=== PATIENT | female | born 1990 | race Caucasian/White ===

== ENCOUNTER 2017-04-13 09:30 | Observation (INO) ==
[2017-04-13 00:34] LABS: Basophils % 0.1 %; Eosinophils # 0.1 K/mcL (0.0-0.6); Eosinophils % 0.6 %; Hematocrit 29.8 % (35.3-44.9); Hemoglobin 10.5 g/dL (11.5-15.4); Immature Granulocytes % 0.5 % (0-4); Lymphocytes # 1.8 K/mcL (0.6-4.6); Lymphocytes % 22.2 %; Mean Corpuscular HGB Conc 35.2 g/dL (31.6-35.5); Mean Corpuscular Hemoglobin 32.5 pg (28.0-33.3); Mean Corpuscular Volume 92.3 fL (83.0-100.0); Mean Platelet Volume 9.6 fL (9.4-12.4); Monocytes # 0.4 K/mcL (0.0-1.3); Monocytes % 4.9 %; Neutrophils # 5.9 K/mcL (1.6-8.9); Platelet Count 189 K/mcL (140-400); Red Blood Count 3.23 M/mcL (3.82-4.97); Red Cell Distribution Width 12.7 % (11.5-14.5); Segmented Neutrophils % 71.7 %
[2017-04-13 00:40] LABS: Prothrombin Time 10.7 Seconds (9.4-12.1)
[2017-04-13 00:43] LABS: Activated Partial Thrombo Time 27.5 Seconds (26.0-36.0)
--- NOTE | 2017-04-13 01:03 | OB/GYN History & Physical ---
Date of Encounter: 04/13/17 Time of Encounter: 00:06 Assessment and Plan (1) 23 weeks gestation of Current visit: Yes Status: Acute (2) Hemorrhage affecting at 23 to 26 weeks gestation, antepartum Current visit: Yes Status: Acute Given amount of bleeding pt had will admit for observation overnight and plan u/ s in am. D/w pt if condition should worsen possible need for emergent c- section and she reports that she would like emergent performed if needed. She is aware of marginal chance of survival and possible group home complications of this babe were delivered now and should survive. History of Present Illness Chief complaint: Bright red vaginal bleeding. HPI: Ms. Treviño is a 26 year old female 3 para 2 female at 23 weeks gestation presents to labor and delivery with complaint of bright red vaginal bleeding. Patient reports she had been fishing this evening when approximate 45 minutes prior to arrival she started having severe back pain went home laid down in bed and had at least 2 cups of bright red vaginal bleeding noted on the sheets. She denies contractions she reports good movement she denies leakage of clear fluid of note she did have sexual intercourse earlier today. She has had no prior problems this . She has no UTI symptoms. She has 2 previous prior term vaginal deliveries without labor. Upon arrival she continues to complain of low back. She denies abdominal pain and bleeding has now pretty near stopped. Past Med Surg Social Fam HX - Past Medical History Source: patient, old records reviewed Medical history: no medical history Psychiatric history: no psych history - Past Surgical History Surgical History: appendectomy - Social History Smoking Status: Never smoker Smokeless Tobacco Status: No Alcohol use: none Drug use: none - Family History Mother Living Status: Still Living Obstetrical History - Pregnancies : 3 Para: 2 Medications and Allergies Ahq302/Iron Fumarate/FA/Dss [ 19 Tablet] 1 tab PO DAILY 04/12/17 [ History] Allergies No Known Allergies Allergy (Verified 04/12/17 23:51) Exam - Constitutional Constitutional: well developed - HEENT HEENT: EOMI, PERRL - Neck Neck exam: full ROM - Lungs Respiratory exam: CTAB - Cardiovascular Cardiovascular exam: RRR - Abdomen Abdomen: Present: gravid, non tender - Cervix Dilation: 0 Effacement: 0 Station: -3 - Uterus Uterus exam: Present: enlarged - Comments Comments: SSE shows scant blood., fern is negative Results Result Diagrams: 04/13/17 00:20 All other labs normal.
[~2017-04-13 09:30] MED LIST: Ringers Solution, Lactated 1,000 ML IVC SCH
--- NOTE | 2017-04-13 11:18 | OB/GYN Progress Note ---
Date of Encounter: 04/13/17 Time of Encounter: 11:16 - Assessment and Plan (1) 23 weeks gestation of Current Visit: Yes Status: Acute (2) Hemorrhage affecting at 23 to 26 weeks gestation, antepartum Current Visit: Yes Status: Acute (3) Low lying placenta with hemorrhage, second trimester Current Visit: Yes Status: Acute Patient placed on pelvic rest to followup as scheduled with Dr. Schreiber. Bleeding precautions given. Subjective - Subjective Antepartum ROS: movement normal, no new complaints Objective - Vital Signs Vital Signs: Intake and Output 04/12/17 04/13/17 04/13/17 23:59 07:59 15:59 Other: Weight 79.379 kg - Exam Comments: Ultrasound images and report reviewed. Low lying placenta noted. Cervical length good. - Labs Labs: Abnormal lab results RBC 3.23 M/mcL (3.82-4.97) L 04/13/17 00:20 Hgb 10.5 g/dL (11.5-15.4) L 04/13/17 00:20 Hct 29.8 % (35.3-44.9) L 04/13/17 00:20
== END 2017-04-13 11:25 | disposition home or self-care (01) ==
LOC: 1NENULAB
PROVIDERS: ADMIT Obstetrics & Gynecology; ATTEND Obstetrics & Gynecology

== ENCOUNTER → 2017-07-09 16:50 | Observation (INO) ==
[2017-07-09 13:41] LABS: Bilirubin,Urine Small (Negative); Blood,Urine Large (Negative); Clarity,Urine Turbid (Clear); Color,Urine Red (Yellow); Glucose,Urine (UA) Normal (Normal); Ketones,Urine Trace mg/dL (Negative); Leukocyte Esterase,Urine Large (Negative); Nitrite,Urine Negative (Negative); PH,Urine 5.5 pH Units (5.0-8.0); Protein,Urine 30 mg/dL (Neg-Trace); Specific Gravity,Urine 1.025 (1.010-1.025); Urobilinogen,Urine Normal (Normal)
[2017-07-09 13:44] LABS: Bacteria,Urine Few per hpf (None-Few); Hyaline Casts,Urine None Seen per lpf (None-Few); Squamous Epithelial Cell,Urine Many per lpf (None-Few); WBC,Urine 50-100 per hpf (0-3)
[2017-07-09 13:51] LABS: RBC,Urine TNTC per hpf (0-3)
[2017-07-09 13:55] LABS: Basophils % 0.1 %; Hematocrit 34.2 % (35.3-44.9); Hemoglobin 11.8 g/dL (11.5-15.4); Immature Granulocytes % 0.5 % (0-4); Lymphocytes # 0.4 K/mcL (0.6-4.6); Lymphocytes % 4.9 %; Mean Corpuscular HGB Conc 34.5 g/dL (31.6-35.5); Mean Corpuscular Hemoglobin 30.9 pg (28.0-33.3); Mean Corpuscular Volume 89.5 fL (83.0-100.0); Mean Platelet Volume 9.7 fL (9.4-12.4); Monocytes # 0.2 K/mcL (0.0-1.3); Monocytes % 2.5 %; Neutrophils # 7.6 K/mcL (1.6-8.9); Platelet Count 154 K/mcL (140-400); Red Blood Count 3.82 M/mcL (3.82-4.97)
[2017-07-09 14:08] LABS: Alanine Aminotransferase 8 Units/L (0-55); Albumin 2.7 g/dL (3.5-5.0); Albumin/Globulin Ratio 0.8 (1.1-2.2); Alkaline Phosphatase 109 Units/L (38-126); Aspartate Amino Transferase 13 Units/L (5-34); BUN/Creatinine Ratio 13 (6-26); Bilirubin,Total 0.7 mg/dL (0.2-1.2); Blood Urea Nitrogen 8 mg/dL (7-20); Calcium 8.6 mg/dL (8.6-10.8); Carbon Dioxide 18 mEq/L (19-29); Chloride 109 mEq/L (98-109); Globulin 3.3 g/dL (2.4-3.5); Glucose 67 mg/dL (70-99); Osmolality,Calculated 279 (280-300); Potassium 3.7 mEq/L (3.5-4.5); Sodium 136 mEq/L (136-145); eGFR For African Americans > 60 (> 60); eGFR For Non-African Americans > 60 (> 60)
[2017-07-09 15:18] LABS: Amphetamine Screen,Urine Negative ng/mL (Cutoff=1000); Barbiturate Screen,Urine Negative ng/mL (Cutoff=200); Benzodiazepines Screen,Urine Negative ng/mL (Cutoff=200); Cannabinoid Screen,Urine Negative ng/mL (Cutoff = 50); Cocaine Screen,Urine Negative ng/mL (Cutoff= 300); Opiate Screen,Urine Negative ng/mL (Cutoff=300); Phencyclidine Screen,Urine Negative ng/mL (Cutoff=25)
[2017-07-09 16:04] LABS: Bilirubin,Urine Small (Negative); Blood,Urine Large (Negative); Clarity,Urine Turbid (Clear); Color,Urine Red (Yellow); Glucose,Urine (UA) Normal (Normal); Ketones,Urine 80 mg/dL (Negative); Leukocyte Esterase,Urine Large (Negative); Nitrite,Urine Negative (Negative); Protein,Urine 30 mg/dL (Neg-Trace); Specific Gravity,Urine 1.021 (1.010-1.025); Urobilinogen,Urine Normal (Normal)
[2017-07-09 16:16] LABS: Squamous Epithelial Cell,Urine Few per lpf (None-Few)
[2017-07-09 16:17] LABS: Mucus,Urine Few (Few); RBC,Urine TNTC per hpf (0-3)
[2017-07-09 16:19] LABS: Amorphous Sediment,Urine Few (Few)
--- NOTE | 2017-07-09 16:24 | OB/GYN Progress Note ---
Date of Encounter: 07/09/17 Time of Encounter: 16:19 - Assessment and Plan (1) 36 weeks gestation of Current Visit: Yes Status: Acute 27 y/o @ 36+2 weeks who comes in to L&D with complaints of possible LOF, vaginal bleeding and decreased movement, SSE done showed bruised vaginal mucosa inferior to the urethra(she had sex last night), patient hydrated, CBC and CMP drawn which returned unremarkable, Abx given for UTI, cervix closed Objective - Vital Signs Vital Signs: Intake and Output 07/09/17 07/09/17 07/09/17 07:59 15:59 23:59 Other: Weight 89.3 kg Patient Weight 07/09/17 23:59 Weight 89.3 kg - Labs Labs: Abnormal lab results Hct 34.2 % (35.3-44.9) L 07/09/17 13:40 Lymphocytes # 0.4 K/mcL (0.6-4.6) L 07/09/17 13:40 Carbon Dioxide 18 mEq/L (19-29) L 07/09/17 13:40 Glucose 67 mg/dL (70-99) L 07/09/17 13:40 Calculated Osmolality 279 (280-300) L 07/09/17 13:40 Albumin 2.7 g/dL (3.5-5.0) L 07/09/17 13:40 Albumin/Globulin Ratio 0.8 (1.1-2.2) L 07/09/17 13:40 Urine Color Red (Yellow) A 07/09/17 14:40 Urine Clarity Turbid (Clear) A 07/09/17 14:40 Urine Protein 30 mg/dL (Neg-Trace) H 07/09/17 14:40 Urine Ketones 80 mg/dL (Negative) H 07/09/17 14:40 Urine Blood Large (Negative) H 07/09/17 14:40 Urine Bilirubin Small (Negative) H 07/09/17 14:40 Ur Leukocyte Esterase Large (Negative) H 07/09/17 14:40 Urine Microscopic RBC TNTC per hpf (0-3) H 07/09/17 14:40 Urine Microscopic WBC 5-15 per hpf (0-3) H 07/09/17 14:40 Ur Culture Indicated? YES (NO) A 07/09/17 14:40
[~2017-07-09 16:50] MED LIST changes: +Benzocaine/Menthol 56 GM AEROSOL SPRAY TP ONE; +Benzocaine/Menthol 56 GM AEROSOL SPRAY TP PRN; -Ringers Solution, Lactated 1,000 ML IVC SCH; +Ringers Solution, Lactated 1,000 ML ONE
== END | disposition home or self-care (01) ==
LOC: 1NENULAB
PROVIDERS: ADMIT Student in an Organized Health Care Education/Training Program; ATTEND Student in an Organized Health Care Education/Training Program

== ENCOUNTER → 2017-07-23 20:50 | Observation (INO) ==
[2017-07-23 19:22] VITALS: BP 124/77
[2017-07-23 20:08] LABS: Bilirubin,Urine Negative (Negative); Blood,Urine Negative (Negative); Clarity,Urine Cloudy (Clear); Color,Urine Yellow (Yellow); Glucose,Urine (UA) Normal (Normal); Ketones,Urine Negative (Negative); Leukocyte Esterase,Urine Trace (Negative); Nitrite,Urine Negative (Negative); Protein,Urine Negative (Neg-Trace); Specific Gravity,Urine 1.013 (1.010-1.025); Urobilinogen,Urine Normal (Normal)
[2017-07-23 20:10] LABS: Hyaline Casts,Urine None Seen per lpf (None-Few); RBC,Urine 0-3 per hpf (0-3)
[2017-07-23 20:14] LABS: Amphetamine Screen,Urine Negative ng/mL (Cutoff=1000); Barbiturate Screen,Urine Negative ng/mL (Cutoff=200); Benzodiazepines Screen,Urine Negative ng/mL (Cutoff=200); Cannabinoid Screen,Urine Negative ng/mL (Cutoff = 50); Cocaine Screen,Urine Negative ng/mL (Cutoff= 300); Opiate Screen,Urine Negative ng/mL (Cutoff=300); Phencyclidine Screen,Urine Negative ng/mL (Cutoff=25)
[2017-07-23 20:20] LABS: Bacteria,Urine Moderate per hpf (None-Few); Squamous Epithelial Cell,Urine Few per lpf (None-Few)
--- NOTE | 2017-07-23 21:05 | Discharge Summary ---
Date of Encounter: 07/23/17 Time of Encounter: 21:04 - Discharge Diagnosis (1) 37 weeks gestation of Priority: Secondary Status: Acute (2) PROM (premature rupture of membranes) Priority: Primary Status: Ruled-out Qualifiers: PROM onset of labor timing: unspecified duration between rupture of membranes and onset of labor PROM gestational age: full term Qualified Code( s): O42.92 - Full-term premature rupture of membranes, unspecified as to length of time between rupture and onset of labor - Discharge Medications Home Medications: Vom694/Iron Fumarate/FA/Dss [ 19 Tablet] 1 tab PO DAILY 04/12/17 [ History] Allergies/Adverse Reactions: 3 Allergy/AdvReac Type Severity Reaction Status Date / Time No Known Allergies Allergy Verified 04/12/17 23:51 Data Procedures and tests throughout hospitalization: Laboratory Tests 07/23/17 07/23/17 20:00 20:00 Urine Color Yellow Urine Clarity Cloudy A Urine pH 6.0 Ur Specific [place] 1.013 Urine Protein Negative Urine Glucose (UA) Normal Urine Ketones Negative Urine Blood Negative Urine Nitrite Negative Urine Bilirubin Negative Urine Urobilinogen Normal Ur Leukocyte Esterase Trace H Urine Microscopic RBC 0-3 Urine Microscopic WBC 5-15 H Ur Squamous Epith Cells Few Urine Bacteria Moderate H Hyaline Casts None Seen Ur Culture Indicated? YES A Urine Opiates Screen Negative Ur Barbiturates Screen Negative Ur Phencyclidine Scrn Negative Ur Amphetamines Screen Negative U Benzodiazepines Scrn Negative Urine Cocaine Screen Negative U Marijuana (THC) Screen Negative Labs on day of discharge: Labs from last 24 hours 07/23/17 07/23/17 20:00 20:00 Urine Color Yellow Urine Clarity Cloudy A Urine pH 6.0 Ur Specific [place] 1.013 Urine Protein Negative Urine Glucose (UA) Normal Urine Ketones Negative Urine Blood Negative Urine Nitrite Negative Urine Bilirubin Negative Urine Urobilinogen Normal Ur Leukocyte Esterase Trace H Urine Microscopic RBC 0-3 Urine Microscopic WBC 5-15 H Ur Squamous Epith Cells Few Urine Bacteria Moderate H Hyaline Casts None Seen Ur Culture Indicated? YES A Urine Opiates Screen Negative Ur Barbiturates Screen Negative Ur Phencyclidine Scrn Negative Ur Amphetamines Screen Negative U Benzodiazepines Scrn Negative Urine Cocaine Screen Negative U Marijuana (THC) Screen Negative Date of admission: 07/23/17 19:09 - Patient Status Disposition: Home, Self-Care Condition: Good Functional capacity at discharge: independent ambulation Overall status at discharge: patient is progressing back to baseline - Discharge Instructions Additional Instructions: LABOR AND DELIVERY DISCHARGE INSTRUCTIONS Signs and Symptoms to be Reported to your Doctor Immediately: * Sudden gush, continuous or intermittent lead of fluid from vagina (note the time of gush and color of fluid) * Onset of bright red vaginal bleeding with or without pain (if you had a vaginal exam during this visit you may notice some dark red spotting. This is normal.) * Contractions that are 5 minutes apart (from the beginning of one contraction to the beginning of the next) and last 45-60 seonds; contractions that you can no longer walk, talk or laugh through. * A change in the baby's activity. This could be an increase or decrease in activity. * Severe headache which does not go away with tylenol. * Sudden swelling in the face, hands, arms and/or legs. * Upper abdominal pain - sometimes associated with heartburn or nausea and is not relieved by Maalox, Mylanta or Tums. * Kick Counts __ One hour after a meal, lay down on one side in a quiet place. Count the number of time the baby moves during an hour. 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
== END | disposition home or self-care (01) ==
LOC: 1NENULAB
PROVIDERS: ADMIT Obstetrics & Gynecology; ATTEND Obstetrics & Gynecology

== ENCOUNTER → 2017-07-30 17:35 | Observation (INO) ==
[2017-07-30 14:52] LABS: Bilirubin,Urine Negative (Negative); Blood,Urine Large (Negative); Clarity,Urine Cloudy (Clear); Color,Urine Dark Yellow (Yellow); Glucose,Urine (UA) Normal (Normal); Ketones,Urine 40 mg/dL (Negative); Leukocyte Esterase,Urine Moderate (Negative); Nitrite,Urine Negative (Negative); Protein,Urine Trace mg/dL (Neg-Trace); Specific Gravity,Urine 1.019 (1.010-1.025); Urobilinogen,Urine Normal (Normal)
[2017-07-30 14:57] LABS: Amphetamine Screen,Urine Negative ng/mL (Cutoff=1000); Barbiturate Screen,Urine Negative ng/mL (Cutoff=200); Benzodiazepines Screen,Urine Negative ng/mL (Cutoff=200); Cannabinoid Screen,Urine Negative ng/mL (Cutoff = 50); Cocaine Screen,Urine Negative ng/mL (Cutoff= 300); Opiate Screen,Urine Negative ng/mL (Cutoff=300); Phencyclidine Screen,Urine Negative ng/mL (Cutoff=25)
[2017-07-30 15:01] LABS: RBC,Urine 15-30 per hpf (0-3); Squamous Epithelial Cell,Urine Few per lpf (None-Few)
[2017-07-30 15:02] LABS: Bacteria,Urine Few per hpf (None-Few)
--- NOTE | 2017-07-30 17:40 | OB/GYN Progress Note ---
Date of Encounter: 08/05/17 Time of Encounter: 17:38 - Assessment and Plan (1) 38 weeks gestation of Status: Acute (2) UTI (urinary tract infection) Status: Acute Qualifiers: Indwelling urinary catheter type: unspecified Encounter type: initial encounter (3) Candidiasis Status: Acute Will rx Terazol Subjective - Subjective Principal diagnosis: cramps and d/c Interval history: Pt at 38w4d presents with cramps and d/c. She denies uc's. No uc's, vb or lof. Objective - Vital Signs Vital Signs: Intake and Output 07/30/17 07/30/17 07/30/17 07:59 15:59 23:59 Other: Weight 87.2 kg Patient Weight 07/30/17 23:59 Weight 87.2 kg - Exam FHR: category 1 Auscultation: bilateral: normal Abdomen: Present: gravid Cervical dilation: 2-3 Cervix effacement: 70 station: -2 - Labs Labs: Abnormal lab results Urine Clarity Cloudy (Clear) A 07/30/17 14:40 Urine Ketones 40 mg/dL (Negative) H 07/30/17 14:40 Urine Blood Large (Negative) H 07/30/17 14:40 Ur Leukocyte Esterase Moderate (Negative) H 07/30/17 14:40 Urine Microscopic RBC 15-30 per hpf (0-3) H 07/30/17 14:40 Urine Microscopic WBC 5-15 per hpf (0-3) H 07/30/17 14:40 Ur Culture Indicated? YES (NO) A 07/30/17 14:40
== END | disposition home or self-care (01) ==
LOC: 1NENULAB
PROVIDERS: ADMIT Obstetrics & Gynecology; ATTEND Obstetrics & Gynecology

== ENCOUNTER 2017-08-01 22:29 | Inpatient (IN) ==
[2017-08-01] MEDS ORDERED: Metoclopramide 10 MG/2 ML VIAL IVP PRN (22:36)
[2017-08-01] MEDS ORDERED: Ondansetron 4 MG/2 ML VIAL IVP PRN (22:36)
[2017-08-01] MEDS ORDERED: Naloxone 0.4 MG/ML INJ IVP PRN (22:36)
[2017-08-01] MEDS ORDERED: Famotidine 20 MG/2 ML VIAL IVP PRN (22:36)
[2017-08-01] MEDS ORDERED: FLUARIX QUAD 2017-18 36MOS UP/PF 0.5 ML SYRINGE IM ONE (22:44)
[2017-08-01] MEDS ORDERED: Ringers Solution, Lactated 1,000 ML IVC SCH (22:45)
[2017-08-01 23:00] LABS: Basophils % 0.2 %; Eosinophils % 0.4 %; Hematocrit 31.7 % (35.3-44.9); Hemoglobin 10.9 g/dL (11.5-15.4); Immature Granulocytes % 0.5 % (0-4); Lymphocytes # 1.9 K/mcL (0.6-4.6); Lymphocytes % 20.2 %; Mean Corpuscular HGB Conc 34.4 g/dL (31.6-35.5); Mean Corpuscular Hemoglobin 30.7 pg (28.0-33.3); Mean Corpuscular Volume 89.3 fL (83.0-100.0); Mean Platelet Volume 10.1 fL (9.4-12.4); Monocytes # 0.5 K/mcL (0.0-1.3); Monocytes % 5.9 %; Neutrophils # 6.7 K/mcL (1.6-8.9); Platelet Count 210 K/mcL (140-400); Red Blood Count 3.55 M/mcL (3.82-4.97); Red Cell Distribution Width 12.1 % (11.5-14.5); Segmented Neutrophils % 72.8 %
[2017-08-01 23:06] LABS: Amphetamine Screen,Urine Negative ng/mL (Cutoff=1000); Barbiturate Screen,Urine Negative ng/mL (Cutoff=200); Benzodiazepines Screen,Urine Negative ng/mL (Cutoff=200); Cannabinoid Screen,Urine Negative ng/mL (Cutoff = 50); Cocaine Screen,Urine Negative ng/mL (Cutoff= 300); Opiate Screen,Urine Negative ng/mL (Cutoff=300); Phencyclidine Screen,Urine Negative ng/mL (Cutoff=25)
[2017-08-01] MEDS ORDERED: Oxytocin 20 units/ LR 1000 mL 20 UNIT/1,000 ML BAG IVC SCH (23:45)
--- NOTE | 2017-08-02 00:47 | OB/GYN History & Physical ---
Date of Encounter: 08/02/17 Time of Encounter: 00:44 Assessment and Plan (1) 39 weeks gestation of Current visit: Yes Status: Acute admit for delivery (2) Elective induction of labor planned Current visit: Yes Status: Acute Pitocin per protocol Patient may have Nubain or Epidural if desires (3) HSV (herpes simplex virus) infection Current visit: Yes Status: Acute acyclovir daily (4) Rubella non-immune status, antepartum Current visit: Yes Status: Acute Immunization offered History of Present Illness Chief complaint: Scheduled IOL HPI: Ms. Treviño is a 27 year old female at 39w0d admitted to L&D for planned elective induction at term. Pt reports + movement, denies LOF and bleeding. Blood Type O+ GBS Negative Rubella Non-immune HbSAG negative Varicella Immune T-Pallidum negative Past Med Surg Social Fam HX - Past Medical History Source: patient Medical history: no medical history, other (HSV) Psychiatric history: anxiety, depression - Past Surgical History Surgical History: appendectomy - Social History Smoking Status: Never smoker Smokeless Tobacco Status: No Alcohol use: none Drug use: none Current living situation: Home - Independent Activity Level: Independent ambulation Recent Out of Country Travel Within the Last 8 Weeks: No Exposure or Possible Exposure to Illness During Travel: No - Family History Mother Age: 48 Living Status: Still Living Hx Family Cardiac Disorders: No Hx Family Respiratory Disorders: No Hx Family Cancer: No Hx Family GI Disorders: No Hx Family Genitourinary Disorders: No Hx Family Endocrine Disorder: No Hx Family Musculoskeletal Disorders: No Hx Family Neuromuscular Disorders: No Hx Family Neurologic Disorders: No Hx Family HEENT Disorders: No Hx Family Autoimmune Disorders: No Hx Family Reproductive Disorders: No Hx Family Psychosocial Disorders: No Hx Family Medical Disorders: No Obstetrical History - Pregnancies : 3 Para: 2 Term: 2 : 0 Ab's: 0 Livin - History/Complications History/Complications: HSV positive, Taking Valacyclovir Medications and Allergies Eah168/Iron Fumarate/FA/Dss [ 19 Tablet] 1 tab PO DAILY 04/12/17 [ History] valACYclovir [Valtrex] 500 mg PO DAILY 07/30/17 [History] 3 Allergy/AdvReac Type Severity Reaction Status Date / Time No Known Allergies Allergy Verified 04/12/17 23:51 Review of System OB All systems PM: reviewed and no additional remarkable complaints except as stated Exam - Vital Signs Vital signs: Initial Vital Signs Temp Pulse Resp BP 98.0 F 81 16 126/69 08/01/17 22:37 08/01/17 22:37 08/01/17 22:37 08/01/17 22:37 - Constitutional Constitutional: well developed, well nourished, no acute distress, average body habitus - Neck Neck exam: full ROM, normal inspection - Lungs Respiratory exam: CTAB - Cardiovascular Cardiovascular exam: RRR, +S1, +S2 - Abdomen Abdomen: Present: bowel sounds normal, gravid, non tender - Extremities Extremities exam: full ROM, normal capillary refill, normal inspection - Cervix Dilation: 3 (per induction consent) Effacement: 60 Station: -1 - Uterus Uterus exam: Present: normal size, normal contour - Comments Comments: FHr 115 bpm moderate variability +15x15 accels no decels noted. Cat. 1 tracing. No contractions noted. Results Result Diagrams: 08/01/17 22:46 Abnormal lab results RBC 3.55 M/mcL (3.82-4.97) L 08/01/17 22:46 Hgb 10.9 g/dL (11.5-15.4) L 08/01/17 22:46 Hct 31.7 % (35.3-44.9) L 08/01/17 22:46 All other labs normal. - VTE Reasons for not Prescribing Prophylaxis: Treatment not Indicated - Low risk for VTE
[2017-08-02] MEDS ORDERED: *HR* FentaNYL (PF) 100 MCG/2 ML VIAL ONE (04:20)
[2017-08-02] MEDS ORDERED: *HR* Ropivacaine/PF 0.2% 10 ML AMPUL ONE (04:20)
[2017-08-02] MEDS ORDERED: Epidural Premix (fent/bupiv) 110 ML EP ONE (04:21)
--- NOTE | 2017-08-02 04:52 | Anesthesia Evaluation PreOp ---
Date of Encounter: 08/02/17 Time of Encounter: 04:49 - Past History Planned Operation: neelima Cardiac History: Denies any Significant Hx Pulmonary History: Denies Any Significant HX BUSINESS ASST History: Denies Any Significant HX Other Medical History: Denies Any Significant HX Anesthesia History: No Prior Anesthetic Complications, Past Anesthesia : Yes (, 39 weeks) Alcohol Use: none Drug use: none Medications and Allergies Zsn318/Iron Fumarate/FA/Dss [ 19 Tablet] 1 tab PO DAILY 04/12/17 [ History] valACYclovir [Valtrex] 500 mg PO DAILY 07/30/17 [History] 3 Allergy/AdvReac Type Severity Reaction Status Date / Time No Known Allergies Allergy Verified 04/12/17 23:51 - Meds/Allergy Pre-op Review Medications Reviewed: Yes Allergies Reviewed: Yes Beta Blockers on Current Med List: No Anesthesia Results - Labs 08/01/17 22:46 Anesthesia Exam O2 Sat Height 1.75 m Weight 93.1 kg Vital Signs Temp Pulse Resp BP 98.0 F 81 16 126/69 08/01/17 22:37 08/01/17 22:37 08/01/17 22:37 08/01/17 22:37 Height: 69 Weight: 93 - HEENT Pupil (Motor): Pupils equal Mallampati: II Teeth: Normal Oral Opening: Greater than 3 - BUSINESS ASST LOC: Oriented BUSINESS ASST Motor: Normal RUE, Normal LUE, Normal RLE, Normal LLE, Normal Face BUSINESS ASST Sensory: Normal: RUE, LUE, RLE, LLE, Face - Cardiac Rhythm: Regular Murmur: None JVD: No Carotid Bruit: No - Pulmonary Breath Sounds: bilateral Clear Respiratory Effort: Symmetrical Anesthesia Assess/Plan ASA Score: 2 Modified [place] Scale for Level of Consciousness: Cooperative, oriented, and tranquil Anesthetic Plan: Regional Monitoring Plan: Standard Monitors
--- NOTE | 2017-08-02 04:55 | Anesthesia Procedures ---
Date of Encounter: 08/02/17 Time of Encounter: 04:20 Procedures: Anesthesia - Epidural/Spinal Patient ID/Chart reviewed: Yes Patient examined: Yes OB Eval: Gestational age: 39 OB Eval: : 3 OB Eval: Hx Para: 2 OB Eval: Dilated at (cm): 4 OB Eval: Contractions: Non-stressed pattern Consent Obtained: Yes Supplemental Oxygen: None/Room Air Site Prep: Aseptic Technique Patient position: upright Local Anesthetic: Lidocaine 1% Amount of Local Anesthetic used: 2 Touhy Needle Gauge: 18 Touhy Needle Depth (cm): 6 Catheter Depth at Skin (cm): 12 Test Dose (1.5% Lido + Epi): Volume given (mls): 3 Test Dose Result: Negative Loading Dose: Fentanyl (mcg): 100 Loading Dose: Other: 0.2% ropivicaine 8ml Loading Dose Administered: Thru Touhy Needle Infusion Med: 0.125% Bupivacaine w/ 2 mcg/ml Fentanyl Infusion Rate (mls/hr): [address]: Tegaderm Interspace Used: L2-L3 Loss of Resistance (ROGELIO): Yes Blood: No CSF: No Paresthesia: No
--- NOTE | 2017-08-02 05:03 | OB Labor Progress Note ---
Date of Encounter: 08/02/17 Time of Encounter: 05:00 Labor Progress Note - Subjective Subjective: Patient resting comfortably with epidural in place. Discussed POC with patient. Patient denies any questions or concerns. - Cervix Cervix: 4.5/70/-1 - Heart Tones Heart Tones: 115 bpm moderate variability +15x15 accels no decels noted. Cat. 1 tracing - [place]: 1.5-2 min apart - Interventions Interventions: SVE, IUPC placed without difficulty. Patient tolerated well. - Plan Plan: Continue to labor management.
--- NOTE | 2017-08-02 08:58 | OB/GYN Procedure Note ---
Delivery - Delivery Date: 08/02/17 Provider: Blanche De Luna (SN Alex) Intrapartum events: none Delivery induction: AROM, oxytocin Delivery augmentation: rupture of membranes Delivery monitor: external FHT, external uterine, internal uterine Anesthesia: epidural Estimated Blood Loss: 100 - Infant (s) A Delivery Date: 08/02/17 Infant Delivery Time: 08:19 Presentation: vertex Position: TANI Route of delivery: Gender: Female Viability: Viable Pounds: 9 Ounces: 1 Weight Gram: 4.115 kg at 1 minute: 8 at 5 mins: 9 Shoulder Dystocia: not encountered Specimens collected: cord blood Placenta: spontaneous Cord: 3 umbilical vessels - Repair Episiotomy: none Laceration Description: Periurethral - Complications Delivery complications: none Delivery comments: Under maternal effort, delivery of viable 4115 gm female infant over intact perineum with right periurethral laceration repaired with 4-0 Vicryl. Orient to maternal abdomen for drying and stimulation. Cord clamped and cut after pulsation ceased. Cord specimen and cord blood obtained. Spontaneous delivery of intact placenta. All counts complete. No meconium or shoulder dystocia encountered. EBL 100 mL. Mother and stable for 2 hour recovery. - Disposition Mom disposition: stable in LDR disposition: stable in LDR
[2017-08-02] MEDS ORDERED: Acetaminophen 325 MG TABLET PO PRN (11:01)
[2017-08-02] MEDS ORDERED: Measles/Mumps/Rubella Vacc 0.5 ML VIAL SQ PRN (11:01)
[2017-08-02] MEDS ORDERED: Oxytocin 20 units/ LR 1000 mL 20 UNIT/1,000 ML BAG IVC SCH (11:01)
[2017-08-02] MEDS ORDERED: Benzocaine/Menthol 56 GM AEROSOL SPRAY TP PRN (13:08)
[2017-08-02] MEDS: Ibuprofen 600 MG TABLET PO PRN (20:26)
[2017-08-03] MEDS: Ibuprofen 600 MG TABLET PO PRN (04:30)
[2017-08-03 07:38] VITALS: BP 103/67
--- NOTE | 2017-08-03 08:21 | Discharge Summary ---
Date of Encounter: 08/03/17 Time of Encounter: 08:19 - Discharge Diagnosis (1) Vaginal delivery Priority: Primary Status: Acute Comments: Edit: Katt Meng CNM PP day 1. Patient doing well Bottle feeding is going well Pain is well controlled Lochia is light and without clots VSS Discharge home today Follow up in office in 6 weeks POC per consult with Dr Pinedo. Pt meeting milestones. She desires discharge home today. (2) Rubella non-immune status, antepartum Priority: Secondary Status: Chronic Comments: MMR vaccination given prior to discharge - Discharge Medications Prescriptions: Ibuprofen [Motrin] 600 mg PO Q6HR PRN #60 tablet PRN Reason: Cramping Docusate [Colace] 100 mg PO BID #30 capsule Ferrous Sulfate 325 mg PO DAILY #30 tablet Home Medications: Bsi023/Iron Fumarate/FA/Dss [ 19 Tablet] 1 tab PO DAILY 04/12/17 [ History] valACYclovir [Valtrex] 500 mg PO DAILY 07/30/17 [History] Benzocaine/Menthol [place] [Dermoplast [place]] 1 appl TP QID PRN aerosol 08/03/17 [Rx] Docusate [Colace] 100 mg PO BID #30 capsule 08/03/17 [Rx] Ferrous Sulfate 325 mg PO DAILY #30 tablet 08/03/17 [Rx] Ibuprofen [Motrin] 600 mg PO Q6HR PRN #60 tablet 08/03/17 [Rx] Allergies/Adverse Reactions: 3 Allergy/AdvReac Type Severity Reaction Status Date / Time No Known Allergies Allergy Verified 04/12/17 23:51 Data Procedures and tests throughout hospitalization: Laboratory Tests 08/01/17 08/01/17 22:46 22:46 WBC 9.2 RBC 3.55 L Hgb 10.9 L Hct 31.7 L MCV 89.3 MCH 30.7 MCHC 34.4 RDW 12.1 Plt Count 210 MPV 10.1 Immature Gran % 0.5 Seg Neutrophils % 72.8 Lymphocytes % 20.2 Monocytes % 5.9 Eosinophils % 0.4 Basophils % 0.2 Neutrophils # 6.7 Lymphocytes # 1.9 Monocytes # 0.5 Eosinophils # 0.0 Basophils # 0.0 Urine Opiates Screen Negative Ur Barbiturates Screen Negative Ur Phencyclidine Scrn Negative Ur Amphetamines Screen Negative U Benzodiazepines Scrn Negative Urine Cocaine Screen Negative U Marijuana (THC) Screen Negative Date of admission: 08/01/17 22:29 Primary care physician: PCP NONE Discharging clinician: Aimee Lynn Anticipated date of discharge: 08/03/17 - Patient Status Disposition: Home, Self-Care Condition: Good Functional capacity at discharge: independent ambulation Overall status at discharge: patient is progressing back to baseline - Discharge Instructions Follow Up With: NONE,PCP [Primary Care Provider] - Sameera Schreiber DO [Partnered Physician] - 08/31/17 2:45 pm Additional Instructions: Perineal Care: Always wipe front to back Change your pad frequently Use your phillip bottle with warm water and spray front to back Do not douche, use tampons, have sexual intercourse or put anything in your vagina for 4-6 weeks after delivery Bleeding: Vaginal bleeding can last up to 6 weeks Your menstrual period may return as early as 6 weeks after you are discharged from the hospital [place]rick/Stitches Care: Vaginal Delivery Vaginal stitches will dissolve within 4-6 weeks Follow perineal care instructions Care Stitches will dissolve on their own If you have raquel, they will need to be removed in the doctors office within 5-7 days. You may shower with stitches or raquel Drip plan or soapy water over the incision to clean. Pat dry gently with a clean towel. Make sure you completely dry under the skin folds DO NOT USE powders, lotions, rubbing alcohol or hydrogen peroxide on or around your incision. This will slow your wound healing It is normal to have soreness, burning, tingling, itchiness and/or numbness as your incision heals Activity: Rest frequently Do not lift anything heavier than a gallon of milk, up to 10-15 pounds No driving for 1-2 weeks for Vaginal delivery No driving for 2-4 weeks for delivery Take stairs slowly, one at a time Gradually increase your daily activity until you are back to your normal routine Do not exercise until you have had your follow-up appointment Bathing: Take a shower daily Do not take a tub bath for the first 4 weeks Diet: Drink plenty of water and fruit juices Eat a well-balanced diet with foods high in fiber such as fruits and vegetables Depression: Your hormones have a major impact on your feelings and emotions. Hormone imbalance may cause changes in your mood, creating unfamiliar thoughts and actions. Support is available to help you understand and cope with these feelings and mood changes. If you answer yes to any of the following questions, please call your health care provider: Are you having trouble sleeping? Are you feeling isolated? Have you lost your appetite? Are you having thoughts of hurting yourself or others? WARNING SIGNS: Heavy bleeding from the vagina (blood is bright red and soaks a sanitary pad in an hour or less.) Passing a blood clot larger than your fist Discharge from the vagina that has a bad odor Temperature over 100.4 F, or if you feel cold and have chills An episiotomy site that is warm, swollen or oozing. Use a mirror if needed Urination (pee) that is painful, very red and swollen or leaking fluid An incision that is painful, very red and swollen and leaking fluid An incision that has come open Breasts that are painful or full with flu like symptoms Redness, warmth or swelling in the calf of your leg Trouble breathing, dizziness, visual disturbance or faintness *Notify your health care provider immediately or go to the nearest Emergency Room if you experience any of the above signs.* To contact the nurses station 24 hours a day, For non-urgent, routine questions, please call the office at - Diet and Activity Activity: increase activity as tolerated, resume usual activities as tolerated Diet: advance to your usual diet Hospital Course Reason for admission: induction of labor Delivery: Episiotomy: none Laceration: none Other procedures: none complications: none Discharge diagnosis: IUP at term delivered Fowler baby: female Hospital course: Ms. Treviño is a 27 year old female at 39w0d admitted to L&D for planned elective induction at term. She was started on pitocin and an epidural was placed. The fetus was monitored externally and noted to have category 1 tracing with moderate variability. After AROM, and IUPC was placed. 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 Under maternal effort, delivery of viable 4115 gm female infant over intact perineum with right periurethral laceration repaired with 4-0 Vicryl. Cord specimen and cord blood obtained. Spontaneous delivery of intact placenta. No meconium or shoulder dystocia encountered with an EBL 100 mL. Mother and stable after delivery. She has some mild abdominal pain, improving vaginal bleeding without clots. She will be discharged with prescriptions for ibuprofen, colace and iron. She was given an MMR vaccination prior to discharge secondary to her Rubella non-immune status. The patient was discharged in stable condition with PP f/u scheduled. Time Attestation: Total time spent providing and/or coordinating discharge services: Time Spent: Less than 30 minutes Exam - Constitutional Vitals: Temp Pulse Resp BP Pulse Ox 97.6 F 66 16 103/67 98 08/03/17 07:37 08/03/17 07:37 08/03/17 07:37 08/03/17 07:37 08/03/17 07:37 General appearance IM: A&O X 3, no acute distress - Respiratory Respiratory exam: Present: CTAB. Absent: accessory muscle use, respiratory distress - Cardiovascular Cardiovascular exam IM: Present: RRR, +S1, +S2. Absent: diastolic murmur, systolic murmur - GI/Abdominal GI/Abdominal exam IM: normal bowel sounds, soft - Rectal Rectal exam: deferred - Uterine Tone: Firm Uterus Position: 1 Finger Below Umbilicus, Midline - Extremities Exam Extremities exam IM: Present: normal capillary refill, normal inspection, radial pulses palpable and symmetrical. Absent: calf tenderness, pedal edema, tenderness - Neurological Exam Neurological exam: alert, oriented X3, no focal deficits, strengths equal and symetr throughout - Attending Attestation I examined this patient and my medical decision-making was reviewed with the Resident Physician. I agree with the documented findings, disposition and treatment plan as described except to the extent set forth below. Katt Meng CNM
[2017-08-03] MEDS ORDERED: Prenatal Vit/FA 1 EACH TABLET PO SCH (09:00)
== END 2017-08-03 11:30 | disposition home or self-care (01) | DRG 774 ==
LOC: 1NENULAB 22:29 → 1NENUOBS 08-02 10:59
PROVIDERS: ADMIT Student in an Organized Health Care Education/Training Program; ATTEND Student in an Organized Health Care Education/Training Program